=== PATIENT | female | born 1965 | race Caucasian/White ===

== ENCOUNTER 2018-01-30 17:55 | Emergency (ER) | payer BC ==
[2018-01-30] MEDS ORDERED: AUGMENTIN875TAB PO (18:29)
[2018-01-30 19:00] VITALS: BP 120/62
== END 2018-01-30 19:03 | disposition home or self-care (01) | DRG 605 ==
LOC: ED 17:55
DX: S60.476A Other superficial bite of right little finger, initial encounter (principal); W55.01XA Bitten by cat, initial encounter

== ENCOUNTER 2019-01-27 07:36 | Day surgery (SDC) | payer BC ==
[~2019-01-27] VITALS: Ht 172.7 cm; Wt 74.8 kg
[~2019-01-27 07:36] MED LIST: ALPHA LIPOIC ACID PO; AUGMENTIN875TAB PO; CRANBERRY PO; MELATONIN PO; MULTIVITAMI9 PO; OMEPRAZOLE20 M1 PO
[2019-01-27] MEDS ORDERED: CRANBERRY125 MG PO (07:46)
[2019-01-27 10:01] VITALS: BP 116/59
== END 2019-01-27 10:18 | disposition home or self-care (01) | DRG 392 ==
LOC: ENDO 07:36 → ORM 08:45 → ENDO 10:18
PROVIDERS: ATTEND Surgery
PROC: 0DB58ZX Excision of Esophagus, Via Natural or Artificial Opening Endoscopic, Diagnostic (ICD-10-PCS; principal; 2019-01-27)
PROC: 0DB68ZX Excision of Stomach, Via Natural or Artificial Opening Endoscopic, Diagnostic (ICD-10-PCS; 2019-01-27)
DX: K21.0 Gastro-esophageal reflux disease with esophagitis (principal); K29.70 Gastritis, unspecified, without bleeding; Z79.899 Other long term (current) drug therapy